=== PATIENT | female | born 1960 | race Caucasian/White ===

== ENCOUNTER 2020-05-02 15:12 | Inpatient (IN) | payer OTHER ==
[~2020-05-02] VITALS: Ht 167.6 cm; Wt 91.8 kg
[~2020-05-02 15:12] MED LIST: CITA20 PO; Prinivil10 MG PO
[2020-05-02 16:37] LABS: BASOPHILS ABSOLUTE AUTO 0.02 K/mm3 (0.00-0.23); BASOPHILS PERCENT AUTO 0 % (0-2); EOSINOPHILS PERCENT AUTO 0 % (0-6); Hematocrit 38.1 % (33.0-51.0); Hemoglobin 13.4 g/dL (11.5-16.0); IMMATURE GRAN ABSOLUTE AUTO 0.05 K/mm3 (0.00-0.10); IMMATURE GRAN PERCENT AUTO 1 % (0-1); LYMPHOCYTES ABSOLUTE AUTO 0.66 K/mm3 (0.84-5.20); LYMPHOCYTES PERCENT AUTO 9 % (21-46); MONOCYTES ABSOLUTE AUTO 0.92 K/mm3 (0.16-1.47); MONOCYTES PERCENT AUTO 12 % (4-13); Mean Corpuscular HGB 33.9 pg (26.0-34.0); Mean Corpuscular HGB Conc 35.2 g/dL (31.5-36.5); Mean Corpuscular Volume 97 fL (80-100); Mean Platelet Volume 11.5 fL (9.1-12.4); NEUTROPHILS ABSOLUTE AUTO 5.92 K/mm3 (1.96-9.15); NEUTROPHILS PERCENT AUTO 78 % (41-73); Platelet Count 68 K/mm3 (150-400); RDW Coefficient Variation 14.6 % (11.7-14.2); RDW Standard Deviation 52.1 fL (35.1-46.3); Red Blood Cell Count 3.95 M/mm3 (3.80-5.20); White Blood Cell Count 7.57 K/mm3 (4.00-11.30)
[2020-05-02 16:52] LABS: Alanine Aminotransfer (ALT/SGP 54 U/L (12-78); Albumin, Blood 2.6 g/dL (3.4-5.0); Albumin/Globulin Ratio 0.6 (0.8-1.8); Alk Phos 60 U/L (50-136); Anion Gap 12 mmol/L (6-16); Aspartate Aminotrans (AST/SGOT 73 U/L (12-37); Bilirubin, Total 0.8 mg/dL (0.1-1.0); Blood Urea Nitrogen 7 mg/dL (8-24); Bun/Creatinine Ratio 10.8 (12.0-20.0); CO2, Blood 23 mmol/L (21-32); Calcium, Blood 8.1 mg/dL (8.5-10.1); Chloride, Blood 96 mmol/L (98-108); Creatinine, Blood 0.65 mg/dL (0.40-1.00); Globulin, Blood 4.5 g/dL (2.2-4.0); Glomerular Filtration Rate >60 (60-); Glucose, Blood 102 mg/dL (70-99); Potassium, Blood 2.8 mmol/L (3.5-5.5); Sodium, Blood 131 mmol/L (136-145); Total Protein, Blood 7.1 g/dL (6.4-8.2); Troponin I <0.015 ng/mL (0.000-0.040)
[2020-05-02 21:00] LABS: Source, Urine Clean Catch
[2020-05-02 21:06] LABS: Appearance, Urine Hazy (Clear); Bilirubin, Urine Neg (Neg); Blood, Urine 4+ (Neg); Color, Urine Yellow (P-Yellow); Glucose Qualitative, Urine Neg (Neg); Ketones, Urine 2+ (Neg); Leukocyte Esterase, Urine 3+ (Neg); Nitrite, Urine Pos (Neg); Protein, Urine 3+ (Neg); Urobilinogen, Urine NORM (Normal)
[2020-05-02 21:14] LABS: Bacteria Many /hpf; Red Blood Cells, Urine Rare /hpf (0-2); Squamous Epithelial Cells Few /hpf (Few); White Blood Cells, Urine TNTC /hpf (0-5)
[2020-05-02 21:51] LABS: Magnesium, Blood 1.8 mg/dL (1.6-2.4); Troponin I <0.015 ng/mL (0.000-0.040)
[2020-05-02] MEDS ORDERED: CEFP200 PO (22:16)
[2020-05-03 04:05] LABS: BASOPHILS ABSOLUTE AUTO 0.03 K/mm3 (0.00-0.23); BASOPHILS PERCENT AUTO 0 % (0-2); Hematocrit 35.2 % (33.0-51.0); Hemoglobin 12.2 g/dL (11.5-16.0); LYMPHOCYTES ABSOLUTE AUTO 0.31 K/mm3 (0.84-5.20); LYMPHOCYTES PERCENT AUTO 4 % (21-46); MONOCYTES ABSOLUTE AUTO 0.61 K/mm3 (0.16-1.47); MONOCYTES PERCENT AUTO 8 % (4-13); Mean Corpuscular HGB 33.9 pg (26.0-34.0); Mean Corpuscular HGB Conc 34.7 g/dL (31.5-36.5); Mean Corpuscular Volume 98 fL (80-100); Mean Platelet Volume 11.7 fL (9.1-12.4); Platelet Count 63 K/mm3 (150-400); RDW Coefficient Variation 14.8 % (11.7-14.2); RDW Standard Deviation 52.8 fL (35.1-46.3); White Blood Cell Count 8.01 K/mm3 (4.00-11.30)
[2020-05-03 04:16] LABS: EOSINOPHILS ABSOLUTE AUTO 0.01 K/mm3 (0.00-0.68); EOSINOPHILS PERCENT AUTO 0 % (0-6); IMMATURE GRAN ABSOLUTE AUTO 0.05 K/mm3 (0.00-0.10); IMMATURE GRAN PERCENT AUTO 1 % (0-1); NEUTROPHILS PERCENT AUTO 87 % (41-73)
[2020-05-03 04:23] LABS: Alanine Aminotransfer (ALT/SGP 44 U/L (12-78); Albumin, Blood 2.3 g/dL (3.4-5.0); Albumin/Globulin Ratio 0.5 (0.8-1.8); Alk Phos 56 U/L (50-136); Anion Gap 6 mmol/L (6-16); Aspartate Aminotrans (AST/SGOT 49 U/L (12-37); Bilirubin, Total 0.7 mg/dL (0.1-1.0); Blood Urea Nitrogen 10 mg/dL (8-24); Bun/Creatinine Ratio 12.6 (12.0-20.0); CO2, Blood 27 mmol/L (21-32); Chloride, Blood 104 mmol/L (98-108); Creatinine, Blood 0.79 mg/dL (0.40-1.00); Globulin, Blood 4.3 g/dL (2.2-4.0); Glomerular Filtration Rate >60 (60-); Glucose, Blood 183 mg/dL (70-99); Potassium, Blood 3.1 mmol/L (3.5-5.5); Sodium, Blood 137 mmol/L (136-145); Total Protein, Blood 6.6 g/dL (6.4-8.2)
--- NOTE | 2020-05-03 06:40 | NUR ---
PT ADMITTED TO ROOM ICU 12 FROM ED. PT ICU STATUS. REPORT RECEIVED. PT ARRIVES AT 0345. VERY SOMNULENT AT TIME OF ARRIVAL. PT IN NO APPARENT DISTRESS. PT FALLS ASLEEP AFTER ANY MOVEMENT IN BED. PRONOUNCED SNORING WITH APNEIC PERIODS. PT DESATURATES TO 79-82 PERCENT WITH THIS PATTERN. PLACED 2 LITERS PER NASAL CANNULA AND HAVE OBTAINED ORDER FOR CPAP. PT CURRENTLY USING CPAP. SATURATIONS HAVE REMAINED > 90 PERCENT. BED ALARM IS ON BED FOR PT SAFETY. PT NOT ABLE TO PARTICIAPTE AT THIS TIME IN ADMISSION PROCESS. WILL CONTINUE TO MONITOR PT, AND WILL REPORT OFF TO ONCOMING RN.
--- NOTE | 2020-05-03 07:58 | NUR ---
ASSUMED CARE RECEIVED REPORT FROM WALT HARTLEY. PT IS SLEEPING ON CPAP. SINUS RHYTHM, RATE IN 70s. BANANA BAG IS INFUSING, ALONG WITH KCL RIDER. BED LOW AND LOCKED. CALL LIGHT WITHIN REACH. CIWA OF 0, CURRENTLY.
--- NOTE | 2020-05-03 10:38 | NUR ---
UPDATE PT WOKE UP, DOESN'T REMEMBER COMING TO ICU BUT REMEMBERS COMING TO HOSPITAL AND WHY SHE CAME IN (INCONTINENCE). CIWA < 4 WHEN AWAKE, JUST A LITTLE DISORIENTED, AND MILDLY ANXIOUS. NO HALLUCINATIONS, TREMORS, HEADACHE, NAUSEA, ETC... PT BACK ASLEEP, STABLE VITALS, SINUS RHYTHM, CALM AND COOPERATIVE. BED LOW AND LOCKED. CALL LIGHT WITHIN REACH.
[2020-05-03 11:24] LABS: Adenovirus F 40/41 Not Detected (NOT DETECT); Astrovirus Not Detected (NOT DETECT); Campylobacter Sp Not Detected (NOT DETECT); Cryptosporidium Not Detected (NOT DETECT); Cyclospora Cayetanensis Not Detected (NOT DETECT); E. Coli O157 Not Detected (NOT DETECT); Entamoeba Histolytica Not Detected (NOT DETECT); Enteroaggregative E. coli-EAEC Not Detected (NOT DETECT); Enteropathogenic E. coli-EPEC Not Detected (NOT DETECT); Enterotoxigenic E. coli-ETEC Not Detected (NOT DETECT); Giardia Lamblia Not Detected (NOT DETECT); Norovirus GI/GII Not Detected (NOT DETECT); Plesiomonas Shigelloides Not Detected (NOT DETECT); Rotavirus A Not Detected (NOT DETECT); Salmonella Sp Not Detected (NOT DETECT); Sapovirus Not Detected (NOT DETECT); Shiga Toxin-prod E. coli-STEC Not Detected (NOT DETECT); Shigella/Enteroin E. coli-EIEC Not Detected (NOT DETECT); Vibrio Cholerae Not Detected (NOT DETECT); Vibrio Sp Not Detected (NOT DETECT); Yersinia Enterocolitica Not Detected (NOT DETECT)
[2020-05-03 14:08] LABS: U Amphetamine Screen Not Detected; U Barbituate Screen Not Detected; U Benzodiazapine Screen DETECTED; U Buprenorphine Screen Not Detected; U Cannabinoids Screen Not Detected; U Cocaine Screen Not Detected; U Methadone Screen Not Detected; U Methamphetamine Screen Not Detected; U Opiates Screen Not Detected; U Oxycodone Screen Not Detected; U Phencyclidine Screen Not Detected; U Propoxyphene Screen Not Detected
--- NOTE | 2020-05-03 18:13 | NUR ---
SHIFT SUMMARY PT REMAINS ALERT AND ORIENTED TO SELF SITUATION AND SURROUNDINGS. SHE SPOKE WITH HER DAUGHTER TODAY. SHE HAS BEEN INCREASINGLY MORE ANXIOUS, CONSTANTLY ASKING FOR IV ATIVAN, BECAUSE IT FEELS GOOD AND SHE JUST WANTS TO SLEEP. I TRIED LIBIRUM BECAUSE SHE WAS ANXIOUS, TREMULOUS, HEADACHE, ETC... (CIWA 8-12) BUT IT DID NOTHING AND SHE WAS GOT OUT OF BED AND ALMOST FELL. SO ONCE WE GOT HER TO BED (SHE WAS STARTING TO BECOME AGITATED) I GAVE HER 1 MG OF ATIVAN TO HELP CALM HER DOWN. I ORDERED A NICOTINE PATCH FOR HER BECAUSE SHE WAS DESPERATE FOR A CIGARETTE. VITALS HAVE BEEN STABLE, SINUS TO LOW 100s SINUS TACH. NO O2 NEEDED. SHE IS DYSPNEIC WITH EXERTION. HER GAIT HAS IMPROVED THROUGHOUT THE DAY, SHE STARTED STANDING AND GETTING TO THE TOILET WITH A SBA JUST FINE. SHE HAS DIARRHEA. VOIDING ADEQUETLY. SHE HAD A FEW INCONTINENT EPISODES. NOT BEING ABLE TO WAIT FOR SOMEONE TO HELP HER TO TOILET. REQUIRING MULTIPLE LINEN CHANGES. SHE HAS A PULL UP/ATTENDS ON HER NOW. MOST TIMES SHE IS ABLE TO WAIT AND BE CONTINENT. BED LOW AND LOCKED. CALL LIGHT WITHIN REACH.
--- NOTE | 2020-05-03 20:00 | NUR ---
ASSUMED CARE OF PT AT 1915. REPORT RECEIVED AT BEDSIDE. PT PRESENTS IN BED. SLEEPING. AWAKENS EASILY TO VERBAL. OF NOTE: PT'S TEMPERATURE 101.4 WILL MEDICATE PT WITH TYLENOL PER PRN EMAR. NO COMPLAINTS OF PAIN OR DISTRESS BY PT. WILL REVIEW CHART AND PLAN OF CARE FOR THIS PT.
--- NOTE | 2020-05-04 01:18 | NUR ---
PT HAS BEEN UP WITH ONE PERSON ASSIST SEVERAL TIMES THIS SHIFT TO BEDSIDE COMMODE. STATES THAT SHE STILL EXPERIENCES "BURNING" AND DISCOMFORT WHEN SHE VOIDS. NO S/S ADVERSE REACTIONS TO ANTIBIOTIC THERAPY. WILL CONTINUE TO MONITOR.
[2020-05-04 03:23] LABS: Hematocrit 35.4 % (33.0-51.0); Mean Corpuscular HGB 33.4 pg (26.0-34.0); Mean Corpuscular HGB Conc 33.9 g/dL (31.5-36.5); Mean Corpuscular Volume 99 fL (80-100); Mean Platelet Volume 11.9 fL (9.1-12.4); Platelet Count 78 K/mm3 (150-400); RDW Coefficient Variation 15.3 % (11.7-14.2); RDW Standard Deviation 55.3 fL (35.1-46.3); Red Blood Cell Count 3.59 M/mm3 (3.80-5.20); White Blood Cell Count 8.72 K/mm3 (4.00-11.30)
[2020-05-04 03:25] LABS: Base Excess Venous 4.1 mmol/L; Bicarbonate Venous 27.5 mmol/L (24.0-30.0); PCO2 Venous 40.9 mmHg (38-42); pH Blood Venous 7.45 (7.34-7.37)
[2020-05-04 03:44] LABS: Alanine Aminotransfer (ALT/SGP 48 U/L (12-78); Albumin, Blood 2.1 g/dL (3.4-5.0); Albumin/Globulin Ratio 0.5 (0.8-1.8); Alk Phos 62 U/L (50-136); Anion Gap 4 mmol/L (6-16); Aspartate Aminotrans (AST/SGOT 48 U/L (12-37); Bilirubin, Total 0.5 mg/dL (0.1-1.0); Blood Urea Nitrogen 11 mg/dL (8-24); CO2, Blood 29 mmol/L (21-32); Calcium, Blood 8.2 mg/dL (8.5-10.1); Chloride, Blood 105 mmol/L (98-108); Creatinine, Blood 0.74 mg/dL (0.40-1.00); Globulin, Blood 3.9 g/dL (2.2-4.0); Glomerular Filtration Rate >60 (60-); Glucose, Blood 123 mg/dL (70-99); Potassium, Blood 3.5 mmol/L (3.5-5.5); Sodium, Blood 138 mmol/L (136-145)
[2020-05-04 03:45] LABS: BAND PERCENT MAN 16 % (0-8); BASOPHILS PERCENT MAN 0 % (0-2); EOSINOPHILS PERCENT MAN 0 % (0-6); LYMPHOCYTES ABSOLUTE MAN 1.04 K/mm3 (0.84-5.20); LYMPHOCYTES PERCENT MAN 12 % (21-46); MONOCYTES ABSOLUTE MAN 0.87 K/mm3 (0.16-1.47); MONOCYTES PERCENT MAN 10 % (4-13); SEG NEUTROPHILS PERCENT MAN 62 % (41-73); TOTAL CELLS COUNTED 100
--- NOTE | 2020-05-04 05:29 | NUR ---
PT HAS HAD EPISODE OF NAUSEA THIS NIGHT WHICH RESOLVED AFTER ZOFRAN. HAS MILD HEADACHE THIS AM. HAS BEEN UP TO BEDSIDE COMMODE THREE TIMES THIS NIGHT. HAS USED CALL LIGHT SYSTEM TO REQUEST ASSIST. DOES HAVE EXERTIONAL DYSPNEA WITH TRANSFERS. HAVE USED 2 L/M O2 PER NASAL CANNULA TO REOLVE DYSPNEA. PT HAS HAD LOW GRADE FEVER WHICH RESOLVED WITH TYLENOL. WILL CONTINUE TO MONITOR PT, AND WILL REPORT OFF TO ONCOMING RN.
--- NOTE | 2020-05-04 12:01 | NUR ---
REASSESSMENT PT HAS BEEN RESTING IN BED THIS MORNING. SHE IS ALERT AND ORIENTED, BUT SLOW IN HER MOVEMENTS LIKE SHE STILL ISN'T FEELING WELL AND SHE STATES THE SAME. SHE HAD A HEADACHE THIS MORNING WHICH SHE RECEIVED TYLENOL FOR, BUT SHE IS STILL COMPLAINING OF NECK PAIN AND REQUESTING IBUPROFEN. SPOKE TO DR. MCWILLIAMS AND RECEIVED ONE TIME ORDER FOR IBUPROFEN AND GAVE PT HEATING PAD FOR UNDER HER NECK WELL. LUNGS ARE STILL WHEEZY AND PT GETS TACHYPNEIC AND A LITTLE DYSPNEIC WITH SMALL BITS OF ACTIVITY. SHE IS STILL TOLERATING GETTING UP TO THE TOILET IN THE ROOM. SR IN THE 80S CURRENTLY, WAS IN THE LOW 100S EARLIER THIS MORNING, BP STABLE. CIWAA AROUND 5. ATE ABOUT HALF OF HER BREAKFAST. RESTING CURRENTLY. CONTINUING TO MONITOR.
--- NOTE | 2020-05-04 17:28 | NUR ---
SHIFT SUMMARY/TRANSFER PT HAS CONTINUED TO HAVE CIWAA BETWEEN 4 AND 6 TODAY. SHE REMAINS ALERT AND ORIENTED, JUST A LITTLE GROGGY. HER LUNGS STILL HAVE WHEEZES, SPO2 GREATER THAN 90 ON RA WHILE AWAKE. REQUIRES 2-3L/NC WHILE SLEEPING. SHE IS EATING, VOIDING ON THE TOILET. SHE GOT UP AND TOOK A SHOWER WITH MINIMAL ASSISTANCE. PT TRANSFERRED UP TO MEDICAL FLOOR, ROOM 313. REPORT GIVEN TO WALT VIVAS. PT TRANSFERRED VIA WC WITH RN. ALL BELONGINGS TRANSFERRED WITH PT. PT TOLERATED TRANSFER WELL.
--- NOTE | 2020-05-04 18:25 | NUR ---
PT TRANSFERED FROM ICU12 TO RM 313. RECEIVED REPORT FROM JOSE ENRIQUE GODOY. PT IS NO LONGER ON TELLY. RESPIRATIONS CLEAR WITH NORMAL HEART RATE. PT HAS 2 IV IN RIGHT ARM, ONE IS CURENTLY TRANSFUSING FLUIDS. PT IS A&O. CIWA SCORE OF 6 WHEN PT ARRIVED ON FLOOR. PT EATING DINNER AND CALL LIGHT W/IN REACH.
--- NOTE | 2020-05-04 19:40 | NUR ---
ASSUMED CARE RECEIVED REPORT FROM WALT VIVAS. ASSUMED CARE OF PT. RESTING COMFORTABLY AT THIS TIME, NO S/S ACUTE DISTRESS NOTED. DENIES NEEDS. CALL LIGHT, POSSESSIONS IN REACH, WILL CONTINUE TO MONITOR.
[2020-05-05 04:45] LABS: BASOPHILS ABSOLUTE AUTO 0.03 K/mm3 (0.00-0.23); BASOPHILS PERCENT AUTO 1 % (0-2); EOSINOPHILS ABSOLUTE AUTO 0.06 K/mm3 (0.00-0.68); EOSINOPHILS PERCENT AUTO 1 % (0-6); Hematocrit 37.4 % (33.0-51.0); Hemoglobin 12.4 g/dL (11.5-16.0); IMMATURE GRAN ABSOLUTE AUTO 0.09 K/mm3 (0.00-0.10); IMMATURE GRAN PERCENT AUTO 2 % (0-1); LYMPHOCYTES ABSOLUTE AUTO 0.95 K/mm3 (0.84-5.20); LYMPHOCYTES PERCENT AUTO 18 % (21-46); MONOCYTES ABSOLUTE AUTO 0.38 K/mm3 (0.16-1.47); MONOCYTES PERCENT AUTO 7 % (4-13); Mean Corpuscular HGB Conc 33.2 g/dL (31.5-36.5); Mean Corpuscular Volume 100 fL (80-100); Mean Platelet Volume 11.7 fL (9.1-12.4); NEUTROPHILS ABSOLUTE AUTO 3.78 K/mm3 (1.96-9.15); NEUTROPHILS PERCENT AUTO 71 % (41-73); Platelet Count 119 K/mm3 (150-400); RDW Coefficient Variation 15.6 % (11.7-14.2); RDW Standard Deviation 57.1 fL (35.1-46.3); Red Blood Cell Count 3.76 M/mm3 (3.80-5.20); White Blood Cell Count 5.29 K/mm3 (4.00-11.30)
[2020-05-05 04:57] LABS: International Normalized Ratio 1.07; Prothrombin Time Results 11.4 Sec (9.7-11.5)
[2020-05-05 05:13] LABS: Anion Gap 7 mmol/L (6-16); Blood Urea Nitrogen 11 mg/dL (8-24); Bun/Creatinine Ratio 12.5 (12.0-20.0); CO2, Blood 27 mmol/L (21-32); Chloride, Blood 105 mmol/L (98-108); Creatinine, Blood 0.88 mg/dL (0.40-1.00); Glomerular Filtration Rate >60 (60-); Glucose, Blood 86 mg/dL (70-99); Potassium, Blood 3.6 mmol/L (3.5-5.5); Sodium, Blood 139 mmol/L (136-145)
--- NOTE | 2020-05-05 06:20 | NUR ---
SHIFT SUMMARY PT HAS HAD NO ACUTE CHANGES IN CONDITION SINCE HER TRANSFER FROM ICU. VSS. CIWAS STABLE, MEDICATED X1 FOR ETOH WITHDRAWAL SX. PT THEN SLEPT T/O NIGHT. WORE CPAP FOR A FEW HOURS, DID NOT TOLERATE WELL. WAS ON RA FOR MUCH OF THE NIGHT. O2 SATS STABLE. CALL LIGHT, POSSESSIONS IN REACH. BED IN LOWEST POSITION WITH ALARM ON. WILL CONTINUE TO MONITOR AND PROVIDE CARE NEEDED UNTIL DAY RN ASSUMES CARE.
[2020-05-05] MEDS ORDERED: SULTRIDS PO (15:47)
[2020-05-05] MEDS ORDERED: FAMO20 PO (15:48)
--- NOTE | 2020-05-05 18:25 | NUR ---
DISCHARGE 1616 WENT IN TO PT ROOM. DC PACKET REVIEWED WITH PT BY TAMIKO GODOY AND MYSELF. PT MADE AWARE OF NEW MEDICATION THAT WILL NEED TO BE PICKED AT [facility]. PT WAS OFFERED SERVICES TO [facility] WHERE PT HAD PREVIOUSLY STAY. PT DECLINED STATING SHE COULD DRIVE HERSELF. WHEN REMOVING PT IV SHE ASKED IF ARRANGMENTS HAD BEEN MADE FOR HER TO STAY THERE BY [employer]. THIS RN STATED THAT OUR CASE MANGERS HAD COME IN EARLIER AND GAVE HER INFORMATION ON RESOURCES AVAILABLE IN THE COMMUNITY IF SHE NEEDS ASSISTANCE FINDING A PLACE TO STAY. PT BECAME AGGRAVATED SAYING SOMEONE FROM [employer] CALLED HER SAYING THEY WOULD ARRANGE A PLACE FOR HER TO STAY. THIS NURSE ASKED IF SHE HAD THE NAME OF THE PERSON WHO CALLED AND PT DID NOT. THIS NURSE REITERATED THAT [facility] DID NOT OFFER THAT SERVICE AND WE ARE UNABLE TO FIND WHO SHE TALKED TO. PT ASKED IF I BELIEVED IF SHE WAS A LIAR, THIS NURSE REITERATED THAT WITHOUT A NAME I CANNOT ASSIST AND LEFT PT ROOM TO SEE IF THERE WAS ANY ADDITIONAL INFORMATION FOR PT. 1630 PT EXITED ROOM IN HER CLOTHES AND WITH BELONGINGS. OFFERED ESCORT DOWN TO PT CAR AND PT DECLINED.
== END 2020-05-05 16:35 | disposition home or self-care (01) | DRG 872 ==
LOC: ER 15:12 → MEDS 15:13 → ER 15:13 → ICUW 15:13 → MEDS 05-04 17:16 → ENPENDDIS 05-05 09:38 → MEDS 05-05 16:35
PROVIDERS: Emergency Medicine; Internal Medicine; Physician Assistant; ADMIT Internal Medicine
DX: A41.51 Sepsis due to Escherichia coli [E. coli] (principal); N10 Acute pyelonephritis; F10.231 Alcohol dependence with withdrawal delirium; R65.20 Severe sepsis without septic shock; J44.9 Chronic obstructive pulmonary disease, unspecified; K70.30 Alcoholic cirrhosis of liver without ascites; I10 Essential (primary) hypertension; F41.9 Anxiety disorder, unspecified; F17.210 Nicotine dependence, cigarettes, uncomplicated; E86.0 Dehydration
CPT/HCPCS: 0097U; 36415; 70450; 71045; 80048; 80053; 81001; 82140; 82803; 83605; 83735; 84443; 84484; 85025; 85610; 87040; 87077; 87086; 87186; 93005; 93010; 94644; 94660; 94762; 96361; 96365; 96375; 96376; 99285-25; A9270; J0696; J1650; J2060; J2405; J3411; J3475; J3480; J7030; J7042; J7120; J7512

== ENCOUNTER 2020-08-13 17:43 | Emergency (ER) | payer OTHER ==
[~2020-08-13] VITALS: Ht 167.6 cm; Wt 77.1 kg
[~2020-08-13 17:43] MED LIST changes: +CEFP200 PO; +FAMO20 PO; +SULTRIDS PO
[2020-08-13 18:20] LABS: BASOPHILS ABSOLUTE AUTO 0.04 K/mm3 (0.00-0.23); BASOPHILS PERCENT AUTO 1 % (0-2); EOSINOPHILS ABSOLUTE AUTO 0.09 K/mm3 (0.00-0.68); EOSINOPHILS PERCENT AUTO 1 % (0-6); Hematocrit 44.3 % (33.0-51.0); Hemoglobin 14.8 g/dL (11.5-16.0); IMMATURE GRAN ABSOLUTE AUTO 0.02 K/mm3 (0.00-0.10); IMMATURE GRAN PERCENT AUTO 0 % (0-1); LYMPHOCYTES PERCENT AUTO 22 % (21-46); MONOCYTES ABSOLUTE AUTO 0.76 K/mm3 (0.16-1.47); MONOCYTES PERCENT AUTO 11 % (4-13); Mean Corpuscular HGB 34.7 pg (26.0-34.0); Mean Corpuscular HGB Conc 33.4 g/dL (31.5-36.5); Mean Corpuscular Volume 104 fL (80-100); Mean Platelet Volume 11.2 fL (9.1-12.4); NEUTROPHILS ABSOLUTE AUTO 4.68 K/mm3 (1.96-9.15); NEUTROPHILS PERCENT AUTO 65 % (41-73); Platelet Count 143 K/mm3 (150-400); RDW Coefficient Variation 11.9 % (11.7-14.2); Red Blood Cell Count 4.26 M/mm3 (3.80-5.20); White Blood Cell Count 7.19 K/mm3 (4.00-11.30)
[2020-08-13 18:38] LABS: Alanine Aminotransfer (ALT/SGP 34 U/L (12-78); Albumin, Blood 3.2 g/dL (3.4-5.0); Albumin/Globulin Ratio 0.8 (0.8-1.8); Alk Phos 68 U/L (50-136); Anion Gap 10 mmol/L (6-16); Aspartate Aminotrans (AST/SGOT 30 U/L (12-37); Bilirubin, Total 0.8 mg/dL (0.1-1.0); Blood Urea Nitrogen 8 mg/dL (8-24); Bun/Creatinine Ratio 10.7 (12.0-20.0); CO2, Blood 22 mmol/L (21-32); Calcium, Blood 8.6 mg/dL (8.5-10.1); Chloride, Blood 108 mmol/L (98-108); Creatinine, Blood 0.75 mg/dL (0.40-1.00); Globulin, Blood 3.9 g/dL (2.2-4.0); Glomerular Filtration Rate >60 (60-); Glucose, Blood 101 mg/dL (70-99); Potassium, Blood 3.4 mmol/L (3.5-5.5); Sodium, Blood 140 mmol/L (136-145); Total Protein, Blood 7.1 g/dL (6.4-8.2)
[2020-08-13 19:41] LABS: Source, Urine Clean Catch
[2020-08-13 19:44] LABS: Appearance, Urine Clear (Clear); Bilirubin, Urine Neg (Neg); Blood, Urine 1+ (Neg); Color, Urine Yellow (P-Yellow); Glucose Qualitative, Urine Neg (Neg); Ketones, Urine 1+ (Neg); Leukocyte Esterase, Urine 1+ (Neg); Nitrite, Urine Neg (Neg); Protein, Urine 2+ (Neg); Urobilinogen, Urine 2+ (Normal)
[2020-08-13 19:53] LABS: Bacteria Few /hpf; Mucus Light (0-Heavy); Red Blood Cells, Urine 0-2 /hpf (0-2); Squamous Epithelial Cells Few /hpf (Few)
[2020-08-13] MEDS ORDERED: Kristalose20 GM PO (21:15)
[2020-08-13] MEDS ORDERED: Miralax17 GM PO (21:15)
== END 2020-08-13 21:31 | disposition home or self-care (01) ==
LOC: ER 17:43
PROVIDERS: Physician Assistant
DX: K59.00 Constipation, unspecified (principal); Z79.899 Other long term (current) drug therapy
CPT/HCPCS: 36415; 51798; 74019; 80053; 81001; 83690; 85025; 87086; 99284-25

== ENCOUNTER 2021-03-26 11:08 | Emergency (ER) | payer OTHER ==
[~2021-03-26] VITALS: Ht 167.6 cm; Wt 63.5 kg
[~2021-03-26 11:08] MED LIST changes: +Kristalose20 GM PO; +Miralax17 GM PO
== END 2021-03-26 12:00 | disposition left against medical advice (07) ==
LOC: ER 11:08
DX: R50.9 Fever, unspecified (principal); R05 Cough; Z53.29 Procedure and treatment not carried out because of patient's decision for other reasons
CPT/HCPCS: 99283

== ENCOUNTER 2021-05-03 08:10 | Inpatient (IN) | payer OTHER ==
[~2021-05-03] VITALS: Ht 170.2 cm; Wt 82.8 kg
[2021-05-03 09:09] LABS: BASOPHILS ABSOLUTE AUTO 0.03 K/mm3 (0.00-0.23); BASOPHILS PERCENT AUTO 1 % (0-2); EOSINOPHILS ABSOLUTE AUTO 0.11 K/mm3 (0.00-0.68); EOSINOPHILS PERCENT AUTO 4 % (0-6); Hematocrit 40.2 % (33.0-51.0); Hemoglobin 13.6 g/dL (11.5-16.0); IMMATURE GRAN ABSOLUTE AUTO 0.02 K/mm3 (0.00-0.10); IMMATURE GRAN PERCENT AUTO 1 % (0-1); LYMPHOCYTES ABSOLUTE AUTO 1.08 K/mm3 (0.84-5.20); LYMPHOCYTES PERCENT AUTO 39 % (21-46); MONOCYTES ABSOLUTE AUTO 0.32 K/mm3 (0.16-1.47); MONOCYTES PERCENT AUTO 11 % (4-13); Mean Corpuscular HGB 33.8 pg (26.0-34.0); Mean Corpuscular HGB Conc 33.8 g/dL (31.5-36.5); Mean Corpuscular Volume 100 fL (80-100); Mean Platelet Volume 12.3 fL (9.1-12.4); NEUTROPHILS ABSOLUTE AUTO 1.24 K/mm3 (1.96-9.15); NEUTROPHILS PERCENT AUTO 44 % (41-73); Platelet Count 63 K/mm3 (150-400); RDW Coefficient Variation 17.2 % (11.7-14.2); RDW Standard Deviation 62.4 fL (35.1-46.3); Red Blood Cell Count 4.02 M/mm3 (3.80-5.20)
[2021-05-03 09:17] LABS: Ethanol (Alcohol), Blood, Med <3 mg/dL
[2021-05-03 09:18] LABS: Alanine Aminotransfer (ALT/SGP 170 U/L (12-78); Albumin, Blood 3.3 g/dL (3.4-5.0); Alk Phos 87 U/L (50-136); Anion Gap 2 mmol/L (6-16); Aspartate Aminotrans (AST/SGOT 239 U/L (12-37); Blood Urea Nitrogen 11 mg/dL (8-24); Bun/Creatinine Ratio 13.2 (12.0-20.0); CO2, Blood 29 mmol/L (21-32); Chloride, Blood 109 mmol/L (98-108); Creatinine, Blood 0.83 mg/dL (0.40-1.00); Globulin, Blood 3.2 g/dL (2.2-4.0); Glomerular Filtration Rate >60 (60-); Glucose, Blood 79 mg/dL (70-99); Sodium, Blood 140 mmol/L (136-145); Total Protein, Blood 6.5 g/dL (6.4-8.2)
[2021-05-03 12:38] LABS: U Amphetamine Screen Not Detected; U Barbituate Screen Not Detected; U Benzodiazapine Screen DETECTED; U Buprenorphine Screen Not Detected; U Cannabinoids Screen Not Detected; U Cocaine Screen Not Detected; U Methadone Screen Not Detected; U Methamphetamine Screen Not Detected; U Opiates Screen Not Detected; U Oxycodone Screen Not Detected; U Phencyclidine Screen Not Detected; U Propoxyphene Screen Not Detected
[2021-05-03 12:47] LABS: Source, Urine Clean Catch
[2021-05-03 12:52] LABS: Appearance, Urine Clear (Clear); Bilirubin, Urine Neg (Neg); Blood, Urine Neg (Neg); Color, Urine Yellow (P-Yellow); Glucose Qualitative, Urine Neg (Neg); Ketones, Urine Neg (Neg); Leukocyte Esterase, Urine Neg (Neg); Nitrite, Urine Neg (Neg); Protein, Urine Neg (Neg); Urobilinogen, Urine 3+ (Normal)
[2021-05-03 12:58] LABS: SARS-Cov-2 (COVID-19) PCR, MMC NEGATIVE (NEGATIVE)
[2021-05-04 04:22] LABS: BASOPHILS ABSOLUTE AUTO 0.02 K/mm3 (0.00-0.23); BASOPHILS PERCENT AUTO 1 % (0-2); EOSINOPHILS ABSOLUTE AUTO 0.09 K/mm3 (0.00-0.68); EOSINOPHILS PERCENT AUTO 4 % (0-6); Hematocrit 39.5 % (33.0-51.0); Hemoglobin 13.5 g/dL (11.5-16.0); IMMATURE GRAN ABSOLUTE AUTO 0.02 K/mm3 (0.00-0.10); IMMATURE GRAN PERCENT AUTO 1 % (0-1); LYMPHOCYTES ABSOLUTE AUTO 0.91 K/mm3 (0.84-5.20); LYMPHOCYTES PERCENT AUTO 35 % (21-46); MONOCYTES ABSOLUTE AUTO 0.26 K/mm3 (0.16-1.47); MONOCYTES PERCENT AUTO 10 % (4-13); Mean Corpuscular HGB 34.5 pg (26.0-34.0); Mean Corpuscular HGB Conc 34.2 g/dL (31.5-36.5); Mean Corpuscular Volume 101 fL (80-100); Mean Platelet Volume 11.2 fL (9.1-12.4); NEUTROPHILS PERCENT AUTO 50 % (41-73); Platelet Count 57 K/mm3 (150-400); RDW Coefficient Variation 17.6 % (11.7-14.2); RDW Standard Deviation 64.1 fL (35.1-46.3); Red Blood Cell Count 3.91 M/mm3 (3.80-5.20)
[2021-05-04 04:45] LABS: International Normalized Ratio 1.31; Prothrombin Time Results 13.9 Sec (9.7-11.5)
[2021-05-04 04:48] LABS: Alanine Aminotransfer (ALT/SGP 138 U/L (12-78); Albumin/Globulin Ratio 0.9 (0.8-1.8); Alk Phos 69 U/L (50-136); Anion Gap 3 mmol/L (6-16); Aspartate Aminotrans (AST/SGOT 167 U/L (12-37); Bilirubin, Total 1.8 mg/dL (0.1-1.0); Blood Urea Nitrogen 9 mg/dL (8-24); Bun/Creatinine Ratio 11.7 (12.0-20.0); CO2, Blood 29 mmol/L (21-32); Calcium, Blood 8.3 mg/dL (8.5-10.1); Chloride, Blood 109 mmol/L (98-108); Creatinine, Blood 0.77 mg/dL (0.40-1.00); Globulin, Blood 3.3 g/dL (2.2-4.0); Glomerular Filtration Rate >60 (60-); Glucose, Blood 84 mg/dL (70-99); Potassium, Blood 3.6 mmol/L (3.5-5.5); Sodium, Blood 141 mmol/L (136-145); Total Protein, Blood 6.3 g/dL (6.4-8.2)
[2021-05-05 04:49] LABS: Hematocrit 44.2 % (33.0-51.0); Mean Corpuscular HGB 34.6 pg (26.0-34.0); Mean Corpuscular HGB Conc 33.9 g/dL (31.5-36.5); Mean Corpuscular Volume 102 fL (80-100); Platelet Count 52 K/mm3 (150-400); RDW Coefficient Variation 17.1 % (11.7-14.2); RDW Standard Deviation 62.5 fL (35.1-46.3); Red Blood Cell Count 4.34 M/mm3 (3.80-5.20); White Blood Cell Count 3.85 K/mm3 (4.00-11.30)
[2021-05-05 05:19] LABS: Alanine Aminotransfer (ALT/SGP 123 U/L (12-78); Albumin, Blood 2.9 g/dL (3.4-5.0); Albumin/Globulin Ratio 0.8 (0.8-1.8); Alk Phos 72 U/L (50-136); Anion Gap 4 mmol/L (6-16); Aspartate Aminotrans (AST/SGOT 139 U/L (12-37); Blood Urea Nitrogen 9 mg/dL (8-24); Bun/Creatinine Ratio 15.1 (12.0-20.0); CO2, Blood 24 mmol/L (21-32); Calcium, Blood 7.6 mg/dL (8.5-10.1); Chloride, Blood 114 mmol/L (98-108); Globulin, Blood 3.7 g/dL (2.2-4.0); Glomerular Filtration Rate >60 (60-); Glucose, Blood 57 mg/dL (70-99); Potassium, Blood 4.4 mmol/L (3.5-5.5); Sodium, Blood 142 mmol/L (136-145); Total Protein, Blood 6.6 g/dL (6.4-8.2)
[2021-05-06 04:23] LABS: Hematocrit 43.6 % (33.0-51.0); Hemoglobin 14.9 g/dL (11.5-16.0); Mean Corpuscular HGB 34.4 pg (26.0-34.0); Mean Corpuscular HGB Conc 34.2 g/dL (31.5-36.5); Mean Corpuscular Volume 101 fL (80-100); Mean Platelet Volume 11.6 fL (9.1-12.4); Platelet Count 61 K/mm3 (150-400); RDW Standard Deviation 62.4 fL (35.1-46.3); Red Blood Cell Count 4.33 M/mm3 (3.80-5.20); White Blood Cell Count 3.81 K/mm3 (4.00-11.30)
[2021-05-06 04:40] LABS: Alanine Aminotransfer (ALT/SGP 110 U/L (12-78); Albumin, Blood 3.1 g/dL (3.4-5.0); Albumin/Globulin Ratio 0.8 (0.8-1.8); Alk Phos 74 U/L (50-136); Anion Gap 3 mmol/L (6-16); Aspartate Aminotrans (AST/SGOT 111 U/L (12-37); Blood Urea Nitrogen 6 mg/dL (8-24); CO2, Blood 25 mmol/L (21-32); Calcium, Blood 8.1 mg/dL (8.5-10.1); Chloride, Blood 111 mmol/L (98-108); Creatinine, Blood 0.67 mg/dL (0.40-1.00); Globulin, Blood 3.8 g/dL (2.2-4.0); Glomerular Filtration Rate >60 (60-); Glucose, Blood 82 mg/dL (70-99); Potassium, Blood 3.5 mmol/L (3.5-5.5); Sodium, Blood 139 mmol/L (136-145); Total Protein, Blood 6.9 g/dL (6.4-8.2)
[2021-05-07 08:45] LABS: Hematocrit 42.3 % (33.0-51.0); Hemoglobin 14.4 g/dL (11.5-16.0); Mean Corpuscular HGB 33.9 pg (26.0-34.0); Mean Corpuscular Volume 100 fL (80-100); Mean Platelet Volume 11.5 fL (9.1-12.4); Platelet Count 76 K/mm3 (150-400); RDW Coefficient Variation 17.2 % (11.7-14.2); RDW Standard Deviation 62.4 fL (35.1-46.3); Red Blood Cell Count 4.25 M/mm3 (3.80-5.20); White Blood Cell Count 3.31 K/mm3 (4.00-11.30)
[2021-05-07 09:16] LABS: Alanine Aminotransfer (ALT/SGP 94 U/L (12-78); Albumin, Blood 3.1 g/dL (3.4-5.0); Albumin/Globulin Ratio 0.8 (0.8-1.8); Alk Phos 75 U/L (50-136); Anion Gap 6 mmol/L (6-16); Aspartate Aminotrans (AST/SGOT 89 U/L (12-37); Bilirubin, Total 1.6 mg/dL (0.1-1.0); Blood Urea Nitrogen 8 mg/dL (8-24); Bun/Creatinine Ratio 10.8 (12.0-20.0); CO2, Blood 25 mmol/L (21-32); Calcium, Blood 8.4 mg/dL (8.5-10.1); Chloride, Blood 111 mmol/L (98-108); Creatinine, Blood 0.74 mg/dL (0.40-1.00); Globulin, Blood 3.8 g/dL (2.2-4.0); Glomerular Filtration Rate >60 (60-); Glucose, Blood 84 mg/dL (70-99); Potassium, Blood 3.8 mmol/L (3.5-5.5); Sodium, Blood 142 mmol/L (136-145); Total Protein, Blood 6.9 g/dL (6.4-8.2)
[2021-05-08 04:36] LABS: Hematocrit 40.3 % (33.0-51.0); Hemoglobin 13.6 g/dL (11.5-16.0); Mean Corpuscular HGB 34.2 pg (26.0-34.0); Mean Corpuscular HGB Conc 33.7 g/dL (31.5-36.5); Mean Corpuscular Volume 101 fL (80-100); Mean Platelet Volume 11.7 fL (9.1-12.4); Platelet Count 84 K/mm3 (150-400); RDW Standard Deviation 63.2 fL (35.1-46.3); Red Blood Cell Count 3.98 M/mm3 (3.80-5.20); White Blood Cell Count 3.51 K/mm3 (4.00-11.30)
[2021-05-08 05:02] LABS: Alanine Aminotransfer (ALT/SGP 82 U/L (12-78); Albumin, Blood 2.8 g/dL (3.4-5.0); Albumin/Globulin Ratio 0.8 (0.8-1.8); Alk Phos 69 U/L (50-136); Anion Gap 5 mmol/L (6-16); Aspartate Aminotrans (AST/SGOT 68 U/L (12-37); Bilirubin, Total 1.1 mg/dL (0.1-1.0); Blood Urea Nitrogen 12 mg/dL (8-24); Bun/Creatinine Ratio 15.8 (12.0-20.0); CO2, Blood 26 mmol/L (21-32); Calcium, Blood 8.6 mg/dL (8.5-10.1); Chloride, Blood 112 mmol/L (98-108); Creatinine, Blood 0.76 mg/dL (0.40-1.00); Globulin, Blood 3.5 g/dL (2.2-4.0); Glomerular Filtration Rate >60 (60-); Glucose, Blood 89 mg/dL (70-99); Potassium, Blood 3.6 mmol/L (3.5-5.5); Sodium, Blood 143 mmol/L (136-145); Total Protein, Blood 6.3 g/dL (6.4-8.2)
== END 2021-05-08 18:30 | disposition left against medical advice (07) | DRG 894 ==
LOC: ER 08:10 → SURS 11:26 → ERHOLD 11:26 → SURS 13:38 → MEDS 05-08 14:42
PROVIDERS: Internal Medicine; Nurse Practitioner Acute Care; Physician Assistant; ADMIT Internal Medicine
PROC: HZ2ZZZZ Detoxification Services for Substance Abuse Treatment (ICD-10-PCS; principal; 2021-05-03)
DX: F10.231 Alcohol dependence with withdrawal delirium (principal); G31.2 Degeneration of nervous system due to alcohol; D69.59 Other secondary thrombocytopenia; K70.10 Alcoholic hepatitis without ascites; K70.30 Alcoholic cirrhosis of liver without ascites; Z20.822 Contact with and (suspected) exposure to COVID-19; F41.9 Anxiety disorder, unspecified; I10 Essential (primary) hypertension; J44.9 Chronic obstructive pulmonary disease, unspecified; F17.210 Nicotine dependence, cigarettes, uncomplicated; W06.XXXA Fall from bed, initial encounter; E66.9 Obesity, unspecified; Y90.0 Blood alcohol level of less than 20 mg/100 ml; Z68.25 Body mass index [BMI] 25.0-25.9, adult
CPT/HCPCS: 36415; 70450; 72125; 80053; 81003; 82140; 82947; 83735; 84443; 85025; 85027; 85610; 94760; 94762; 97116; 97162; 97166; 99285-25; A9270; C9113; G0480; J2060; J2405; J3411; J3475; J7030; J7042; J7050; P9612; U0004

== ENCOUNTER 2021-05-09 21:21 | Emergency (ER) | payer OTHER | END 2021-05-10 00:01 | disposition home or self-care (01) | LOC: ER 21:21 | DX: U07.1 COVID-19 (principal) | CPT/HCPCS: 71045; 99283-25 ==

== ENCOUNTER 2021-06-02 14:40 | Emergency (ER) | payer OTHER ==
[~2021-06-02] VITALS: Ht 165.1 cm; Wt 81.7 kg
[2021-06-02] MEDS ORDERED: LISI20 PO (15:12)
[2021-06-02] MEDS ORDERED: Celexa20 MG PO (15:14)
[2021-06-02] MEDS ORDERED: CLON.5 PO (15:14)
[2021-06-02] MEDS ORDERED: PROM25 PO (17:23)
== END 2021-06-02 17:30 | disposition home or self-care (01) ==
LOC: ER 14:40
DX: R11.2 Nausea with vomiting, unspecified (principal); R19.7 Diarrhea, unspecified; I10 Essential (primary) hypertension; J44.9 Chronic obstructive pulmonary disease, unspecified; Z87.891 Personal history of nicotine dependence; Z79.899 Other long term (current) drug therapy
CPT/HCPCS: 36415; 96374; 99284-25; J2405; J7030

== ENCOUNTER → 2022-08-27 | Outpatient (CLI) | payer OTHER ==
[~2022-08-27] MED LIST changes: +CLON.5 PO; +Celexa20 MG PO; +LISI20 PO; +PROM25 PO
[2022-08-28 14:10] LABS: HPV 16 Negative (Negative); HPV 18 Negative (Negative); HPV OTHER HR TYPES Negative (Negative)
== END | disposition home or self-care (01) ==
LOC: LAB SHORT 10:10
PROVIDERS: Nurse Practitioner Family
DX: Z01.419 Encounter for gynecological examination (general) (routine) without abnormal findings (principal)
CPT/HCPCS: 87624; G0123

== ENCOUNTER 2023-11-22 16:20 | Emergency (ER) | payer OTHER ==
[~2023-11-22] VITALS: Ht 167.6 cm; Wt 90.7 kg
[~2023-11-22 16:20] MED LIST changes: +ATOR80 PO; +Aspir 8181 MG PO; +CLOP75 PO
[2023-11-22 17:22] LABS: Influenza A, PCR NEGATIVE (NEGATIVE); Influenza B, PCR NEGATIVE (NEGATIVE); Resp Syncytial Virus, PCR NEGATIVE (NEGATIVE); SARS-Cov-2 (COVID-19) PCR, MMC NEGATIVE (NEGATIVE)
[2023-11-22] MEDS ORDERED: Lisinopril 20 MG Tab PO ONE (18:05)
[2023-11-22] MEDS ORDERED: HydrALAZINE HCl 20 MG / ML 1ML Vial IV ONE ×2 (18:25→19:30)
[2023-11-22 18:52] LABS: BASOPHILS ABSOLUTE AUTO 0.03 K/mm3 (0.00-0.23); BASOPHILS PERCENT AUTO 1 % (0-2); EOSINOPHILS ABSOLUTE AUTO 0.02 K/mm3 (0.00-0.68); EOSINOPHILS PERCENT AUTO 0 % (0-6); Hematocrit 44.4 % (33.0-51.0); IMMATURE GRAN ABSOLUTE AUTO 0.01 K/mm3 (0.00-0.10); IMMATURE GRAN PERCENT AUTO 0 % (0-1); LYMPHOCYTES ABSOLUTE AUTO 1.36 K/mm3 (0.84-5.20); LYMPHOCYTES PERCENT AUTO 25 % (21-46); MONOCYTES ABSOLUTE AUTO 0.47 K/mm3 (0.16-1.47); MONOCYTES PERCENT AUTO 9 % (4-13); Mean Corpuscular HGB 31.4 pg (26.0-34.0); Mean Corpuscular HGB Conc 33.8 g/dL (31.5-36.5); Mean Corpuscular Volume 93 fL (80-100); Mean Platelet Volume 10.9 fL (9.1-12.4); NEUTROPHILS ABSOLUTE AUTO 3.61 K/mm3 (1.96-9.15); NEUTROPHILS PERCENT AUTO 66 % (41-73); Platelet Count 159 K/mm3 (150-400); RDW Coefficient Variation 13.3 % (11.7-14.2); RDW Standard Deviation 45.3 fL (35.1-46.3); Red Blood Cell Count 4.78 M/mm3 (3.80-5.20)
[2023-11-22] MEDS ORDERED: DiphenhydrAMINE HCl 50 MG/ML 1ML Vial IV ONE (19:00)
[2023-11-22] MEDS ORDERED: Metoclopramide HCl 5MG / ML 2ML Vial IV ONE (19:00)
[2023-11-22] MEDS ORDERED: Acetaminophen 500 MG Tab PO ONE (19:00)
[2023-11-22 19:10] LABS: Alanine Aminotransfer (ALT/SGP 29 U/L (12-78); Albumin, Blood 3.8 g/dL (3.4-5.0); Albumin/Globulin Ratio 1.1 (0.8-1.8); Alk Phos 51 U/L (50-136); Anion Gap 8 mmol/L (3-11); Aspartate Aminotrans (AST/SGOT 17 U/L (12-37); Bilirubin, Total 0.6 mg/dL (0.1-1.0); Blood Urea Nitrogen 11 mg/dL (8-24); Bun/Creatinine Ratio 17.3 (12.0-20.0); CO2, Blood 27 mmol/L (21-32); Calcium, Blood 9.2 mg/dL (8.5-10.1); Chloride, Blood 109 mmol/L (98-108); Creatinine, Blood 0.64 mg/dL (0.40-1.00); Ethanol (Alcohol), Blood, Med <3 mg/dL; Globulin, Blood 3.4 g/dL (2.2-4.0); Glomerular Filtration Rate 100 (60-); Glucose, Blood 94 mg/dL (70-99); Potassium, Blood 3.8 mmol/L (3.5-5.5); Sodium, Blood 140 mmol/L (136-145); Total Protein, Blood 7.2 g/dL (6.4-8.2)
[2023-11-22 20:02] LABS: Source, Urine Clean Catch
[2023-11-22 20:05] LABS: Bilirubin, Urine Neg (Neg); Blood, Urine Neg (Neg); Glucose Qualitative, Urine Neg (Neg); Ketones, Urine 2+ (Neg); Leukocyte Esterase, Urine Neg (Neg); Nitrite, Urine Neg (Neg); Protein, Urine Neg (Neg); Urobilinogen, Urine NORM (Normal)
[2023-11-22 20:22] LABS: Appearance, Urine Hazy (Clear); Bacteria Many /hpf; Color, Urine Yellow (P-Yellow); Red Blood Cells, Urine Not Seen /hpf (0-2); Squamous Epithelial Cells Many /hpf (Few); White Blood Cells, Urine 0-2 /hpf (0-5)
[2023-11-22 20:25] LABS: Amorphous Light (0-Heavy); Mucus Light (0-Heavy)
[2023-11-22 20:32] LABS: U Amphetamine Screen Not Detected; U Barbituate Screen Not Detected; U Benzodiazapine Screen Not Detected; U Buprenorphine Screen Not Detected; U Cannabinoids Screen Not Detected; U Cocaine Screen Not Detected; U Methadone Screen Not Detected; U Methamphetamine Screen Not Detected; U Opiates Screen Not Detected; U Oxycodone Screen Not Detected; U Phencyclidine Screen Not Detected
[2023-11-22 21:00] VITALS: BP 159/97
== END 2023-11-22 21:05 | disposition home or self-care (01) ==
LOC: ER 16:20
PROVIDERS: Emergency Medicine; Student in an Organized Health Care Education/Training Program
DX: R07.89 Other chest pain (principal); R51.9 Headache, unspecified; I10 Essential (primary) hypertension; J44.9 Chronic obstructive pulmonary disease, unspecified; F41.9 Anxiety disorder, unspecified; Z87.891 Personal history of nicotine dependence; Z79.82 Long term (current) use of aspirin; Z79.899 Other long term (current) drug therapy
CPT/HCPCS: 0241U; 70450; 71046; 80053; 81001; 84484; 85025; 87086; 93005; 93010; 96374; 96375; 99284-25; A9270; J0360; J1200; J2765

== ENCOUNTER 2024-04-13 09:58 | Emergency (ER) | payer OTHER ==
[~2024-04-13] VITALS: Ht 167.6 cm; Wt 81.7 kg
[2024-04-13] MEDS ORDERED: NS 1,000 ML IV SCH (10:20)
[2024-04-13] MEDS ORDERED: Morphine Sulfate 4 MG/1 ML Injection IV ONE (10:20)
[2024-04-13] MEDS ORDERED: Ondansetron HCl 2 MG / ML 2ML Vial IV ONE (10:20)
[2024-04-13 10:51] LABS: Source, Urine Clean Catch
[2024-04-13 11:09] LABS: BASOPHILS ABSOLUTE AUTO 0.02 K/mm3 (0.00-0.23); BASOPHILS PERCENT AUTO 0 % (0-2); EOSINOPHILS ABSOLUTE AUTO 0.12 K/mm3 (0.00-0.68); EOSINOPHILS PERCENT AUTO 2 % (0-6); Hematocrit 41.8 % (33.0-51.0); Hemoglobin 13.9 g/dL (11.5-16.0); IMMATURE GRAN ABSOLUTE AUTO 0.02 K/mm3 (0.00-0.10); IMMATURE GRAN PERCENT AUTO 0 % (0-1); LYMPHOCYTES ABSOLUTE AUTO 1.41 K/mm3 (0.84-5.20); LYMPHOCYTES PERCENT AUTO 22 % (21-46); MONOCYTES ABSOLUTE AUTO 0.51 K/mm3 (0.16-1.47); MONOCYTES PERCENT AUTO 8 % (4-13); Mean Corpuscular HGB 30.6 pg (26.0-34.0); Mean Corpuscular HGB Conc 33.3 g/dL (31.5-36.5); Mean Corpuscular Volume 92 fL (80-100); Mean Platelet Volume 11.3 fL (9.1-12.4); NEUTROPHILS ABSOLUTE AUTO 4.28 K/mm3 (1.96-9.15); NEUTROPHILS PERCENT AUTO 67 % (41-73); Platelet Count 134 K/mm3 (150-400); RDW Coefficient Variation 12.8 % (11.7-14.2); RDW Standard Deviation 43.8 fL (35.1-46.3); Red Blood Cell Count 4.54 M/mm3 (3.80-5.20); White Blood Cell Count 6.36 K/mm3 (4.00-11.30)
[2024-04-13 11:15] LABS: Bilirubin, Urine Neg (Neg); Blood, Urine Neg (Neg); Glucose Qualitative, Urine Neg (Neg); Ketones, Urine Neg (Neg); Leukocyte Esterase, Urine Neg (Neg); Nitrite, Urine Neg (Neg); Protein, Urine Neg (Neg); Specific Gravity, Urine 1.015 (1.003-1.022); Urobilinogen, Urine NORM (Normal)
[2024-04-13 11:29] LABS: Appearance, Urine Clear (Clear); Color, Urine Yellow (P-Yellow)
[2024-04-13 11:50] LABS: Albumin, Blood 3.4 g/dL (3.4-5.0); Calcium, Blood 8.9 mg/dL (8.5-10.1); Creatinine, Blood 0.79 mg/dL (0.40-1.00); Globulin, Blood 3.3 g/dL (2.2-4.0); Potassium, Blood 3.8 mmol/L (3.5-5.5); Total Protein, Blood 6.7 g/dL (6.4-8.2)
[2024-04-13] MEDS ORDERED: CIPR500 PO (12:04)
[2024-04-13] MEDS ORDERED: METR500 PO (12:04)
[2024-04-13] MEDS ORDERED: MetroNIDAZOLE 500 MG Tab PO ONE (12:05)
[2024-04-13] MEDS ORDERED: Ciprofloxacin 500 MG Tab PO ONE (12:05)
[2024-04-13 12:39] VITALS: BP 165/96
== END 2024-04-13 12:45 | disposition home or self-care (01) ==
LOC: ER 09:58
PROVIDERS: Emergency Medicine
DX: K57.32 Diverticulitis of large intestine without perforation or abscess without bleeding (principal); Z79.899 Other long term (current) drug therapy; Z79.82 Long term (current) use of aspirin; I10 Essential (primary) hypertension; J44.9 Chronic obstructive pulmonary disease, unspecified; Z87.891 Personal history of nicotine dependence
CPT/HCPCS: 74177; 80053; 81003; 83690; 84484; 85025; 93005; 93010; 96361; 96374-59; 96375; 99284-25; A9270; J2270; J2405; J7030; Q9967

== ENCOUNTER → 2024-09-03 | Outpatient (CLI) | payer OTHER ==
[~2024-09-03] MED LIST changes: +CIPR500 PO; +METR500 PO
[2024-09-04 13:30] LABS: Stool Occult Bld Immuno 1 Negative (NEGATIVE)
== END ==
LOC: LAB 14:36 → LAB SHORT 14:36
PROVIDERS: Nurse Practitioner Family
DX: Z12.11 Encounter for screening for malignant neoplasm of colon (principal)
CPT/HCPCS: G0328

== ENCOUNTER 2024-12-25 13:28 | Emergency (ER) | payer OTHER ==
[~2024-12-25] VITALS: Ht 167.6 cm; Wt 90.7 kg
[2024-12-25] MEDS ORDERED: Ketorolac Tromethamine 15mg Vial IV ONE ×2 (13:35→15:10)
[2024-12-25 14:06] LABS: BASOPHILS ABSOLUTE AUTO 0.03 K/mm3 (0.00-0.23); BASOPHILS PERCENT AUTO 0 % (0-2); EOSINOPHILS ABSOLUTE AUTO 0.12 K/mm3 (0.00-0.68); EOSINOPHILS PERCENT AUTO 2 % (0-6); Hematocrit 40.7 % (33.0-51.0); Hemoglobin 13.6 g/dL (11.5-16.0); IMMATURE GRAN ABSOLUTE AUTO 0.02 K/mm3 (0.00-0.10); IMMATURE GRAN PERCENT AUTO 0 % (0-1); LYMPHOCYTES ABSOLUTE AUTO 1.44 K/mm3 (0.84-5.20); LYMPHOCYTES PERCENT AUTO 21 % (21-46); MONOCYTES ABSOLUTE AUTO 0.64 K/mm3 (0.16-1.47); MONOCYTES PERCENT AUTO 9 % (4-13); Mean Corpuscular HGB 30.8 pg (26.0-34.0); Mean Corpuscular HGB Conc 33.4 g/dL (31.5-36.5); Mean Corpuscular Volume 92 fL (80-100); Mean Platelet Volume 10.4 fL (9.1-12.4); NEUTROPHILS ABSOLUTE AUTO 4.74 K/mm3 (1.96-9.15); NEUTROPHILS PERCENT AUTO 68 % (41-73); Platelet Count 167 K/mm3 (150-400); RDW Standard Deviation 44.3 fL (35.1-46.3); Red Blood Cell Count 4.41 M/mm3 (3.80-5.20); White Blood Cell Count 6.99 K/mm3 (4.00-11.30)
[2024-12-25 14:18] LABS: Albumin, Blood 3.6 g/dL (3.4-5.0); Albumin/Globulin Ratio 1.1 (0.8-1.8); Bilirubin, Total 1.1 mg/dL (0.1-1.0); Bun/Creatinine Ratio 24.4 (12.0-20.0); Calcium, Blood 8.9 mg/dL (8.5-10.1); Creatinine, Blood 0.7 mg/dL (0.40-1.00); Globulin, Blood 3.4 g/dL (2.2-4.0)
[2024-12-25] MEDS ORDERED: NS 1,000 ML IV SCH (15:10)
[2024-12-25] MEDS ORDERED: Amoxicillin/Clavulanate K 875 MG Tab PO ONE (15:30)
[2024-12-25] MEDS ORDERED: AMOCLA875 PO (15:44)
[2024-12-25 16:22] VITALS: BP 134/106
[2024-12-25 16:48] LABS: Source, Urine Clean Catch
[2024-12-25 16:58] LABS: Appearance, Urine Clear (Clear); Bilirubin, Urine Neg (Neg); Blood, Urine Neg (Neg); Color, Urine Yellow (P-Yellow); Glucose Qualitative, Urine Neg (Neg); Ketones, Urine Neg (Neg); Leukocyte Esterase, Urine Neg (Neg); Nitrite, Urine Neg (Neg); Protein, Urine 1+ (Neg); Specific Gravity, Urine 1.005 (1.003-1.022); Urobilinogen, Urine NORM (Normal)
== END 2024-12-25 16:11 | disposition home or self-care (01) ==
LOC: ER 13:28
PROVIDERS: Emergency Medicine
DX: K57.32 Diverticulitis of large intestine without perforation or abscess without bleeding (principal); I10 Essential (primary) hypertension; J44.9 Chronic obstructive pulmonary disease, unspecified; Z79.899 Other long term (current) drug therapy; Z79.82 Long term (current) use of aspirin; Z87.891 Personal history of nicotine dependence
CPT/HCPCS: 74177; 80053; 85025; 96374-59; 99284-25; A9270; J1885; J7030; Q9967